=== PATIENT | female | born 1985 | race Caucasian/White ===

== ENCOUNTER 2018-08-31 10:06 | Inpatient (IN) | payer OTHER ==
[2018-08-31 11:04] LABS: Urine Benzodiazepine Screen None Detected (None Detect); Urine Opiates Screen None Detected (None Detect)
[2018-08-31] MEDS ORDERED: Lactated Ringers 1000 ML Bag* 1,000 ML IV ONE (12:41)
[2018-08-31] MEDS ORDERED: Buffered Lidocaine 1% SYRIN* 1 ML/SYRINGE INTRADERM ONE (12:41)
[2018-08-31 12:57] LABS: ABS Eosinophils 0.1 10^3/ul (0-0.6); ABS Lymphocytes 1.5 10^3/ul (1.0-4.8); ABS Monocytes 0.5 10^3/ul (0-0.8); Eosinophil % 0.7 %; Hematocrit 43 % (35-47); Hemoglobin 14.7 g/dL (12.0-16.0); Lymphocyte % 16.6 %; Mean Corpuscular HGB Conc 35 g/dL (31-36); Mean Corpuscular Hemoglobin 33 pg (27-31); Mean Corpuscular Volume 94 fL (80-97); Nucleated Red Blood Cells % 0.1; Platelet Count 174 10^3/uL (150-450); Red Blood Count 4.51 10^6 /uL (3.70-4.87); Red Cell Distribution Width 13 % (10-15); White Blood Count 9.2 10^3/uL (3.5-10.8)
[2018-08-31] MEDS ORDERED: Lactated Ringers 1000 ML Bag* 1,000 ML IV SCH (13:00)
--- NOTE | 2018-08-31 16:36 | HP ---
General Information - Reason for Visit at 39+ weeks EGA presents with Prior section and premature ruptured membranes, desires trial of labor. - General Information Maternal Age: 33 Grav: 4 Para: 1 SAB: 2 IEA: 0 Estimated Due Date: 09/05/18 Determined By: LMP Gestational Age in Weeks/Days: 39 2/7 Maternal Blood Type and Rh: A Positive - Results this Serology/RPR Result: Non-Reactive Rubella Result: Immune HBsAg Result: Negative HIV Result: Negative GBS Culture Result: Negative Past Medical History Delivery History: Hx C/Section, See Records Pertinent Past Medical History: See Records Past Medical History Comment: Eczema Food-Nut allergies, reaction anaphylaxis Pertinent Past Surgical History: See Records - Prior for breech 2018 Pertinent Family History: See Records - Antepartal Records Antepartal Records: Reviewed, Complicated by: - Prior Review of Systems Constitutional: Comfortable CV Complaint: No Respiratory: Shortness of Breath: No Gastrointestinal: No Nausea/Vomiting, Normal Bowel Movement, Nausea, Vomiting Genitourinary: Leaking Fluid, No Dysuria, No Bleeding Musculoskeletal: No Complaint, No Epigastric Pain Neurological: No Headache, No Visual Changes Movement: Normal Exam Allergies/Adverse Reactions: Allergies Tree Nuts Allergy (Severe, Verified 08/31/18 11:25) Anaphylatic Shock Vital Signs 08/31/18 08/31/18 12:22 16:12 Temperature 99 F 98.9 F Pulse Rate 76 76 Respiratory 18 16 Rate Blood Pressure 124/78 114/73 (mmHg) O2 Sat by Pulse 97 100 Oximetry Lab Values - Entire Visit: Laboratory Tests 08/31/18 08/31/18 08/31/18 10:33 10:33 12:48 WBC 9.2 RBC 4.51 Hgb 14.7 Hct 43 MCV 94 MCH 33 H MCHC 35 RDW 13 Plt Count 174 MPV 9.0 Neut % (Auto) 76.6 Lymph % (Auto) 16.6 Moody % (Auto) 5.8 Eos % (Auto) 0.7 Baso % (Auto) 0.3 Absolute Neuts (auto) 7.0 Absolute Lymphs (auto) 1.5 Absolute Monos (auto) 0.5 Absolute Eos (auto) 0.1 Absolute Basos (auto) 0.0 Absolute Nucleated RBC 0.0 Nucleated RBC % 0.1 Vag Amniotic Fld Detect Positive Urine Opiates Screen None detected Ur Barbiturates Screen None detected Ur Phencyclidine Scrn None detected Ur Amphetamines Screen None detected U Benzodiazepines Scrn None detected Urine Cocaine Screen None detected U Cannabinoids Screen None detected Blood Type Antibody Screen 08/31/18 12:48 WBC RBC Hgb Hct MCV MCH MCHC RDW Plt Count MPV Neut % (Auto) Lymph % (Auto) Moody % (Auto) Eos % (Auto) Baso % (Auto) Absolute Neuts (auto) Absolute Lymphs (auto) Absolute Monos (auto) Absolute Eos (auto) Absolute Basos (auto) Absolute Nucleated RBC Nucleated RBC % Vag Amniotic Fld Detect Urine Opiates Screen Ur Barbiturates Screen Ur Phencyclidine Scrn Ur Amphetamines Screen U Benzodiazepines Scrn Urine Cocaine Screen U Cannabinoids Screen Blood Type A Positive Antibody Screen Negative - Measurements Height: 5 ft 8 in Weight: 150 lb Weight in lbs: 150.540621 Body Mass Index (BMI): 22.8 Pre- Weight: 120 lb Weight Gained This : 30 lbs and 0 ozs - Exam Breast: Breast Exam Deferred CVA: No CVA Tenderness Extremities: No Edema Heart: Normal Rhythm/Heart Sounds HEENT: No Significant Findings Lungs: Clear Bilaterally Rectal: Rectal Exam Deferred Reflexes: DTR 2+ Thyroid: No Thyromegaly - Abdominal Exam Abdomen Exam: Non-Tender, Fundal Height Consistent with Dates - Ultrasound/Biophysical Profile Ultrasound Status: Not Done Targeted Exam Findings See L&D Outpatient Visit Provider Note for Findings: N/A Estimated Weight: 3500gms Presenting Part: Vertex Membrane Status: SROM Amniotic Fluid Evaluation: Positive ROM Plus, Clear Bleeding/Discharge: None EFM Findings - External Monitor Findings Baseline Heart Rate: 140 External Monitor Findings: Accelerations Present Contractions: None Assessment/Plan - Assessment Spontaneous premature ruptured membranes, reactive NST, desires TOLAC not in labor. - Plan Plan: Observe, Admit - Anticipate Vaginal Delivery - Date/Time of Admission Date of Admission: 08/31/18 Time of Admission: 13:00
[2018-09-01] MEDS ORDERED: Oxytocin in LR* 20 UNITS/1,000 ML BAG IVPB ONE (06:34)
[2018-09-01] MEDS ORDERED: Witch Hazel PAD* JAR TOPICAL PRN (06:52)
[2018-09-01] MEDS ORDERED: Glycerin ADULT SUPP PR PRN (06:52)
[2018-09-01] MEDS ORDERED: Dibucaine 1% 28.35 GM TUBE PR PRN (06:52)
[2018-09-01] MEDS ORDERED: Acetaminophen TAB* 325 MG PO PRN (06:52)
--- NOTE | 2018-09-01 06:58 | PROCNOTE ---
[facility] OB: Delivery Note - Delivery A Date of : 09/01/18 Time of : 06:28 Sex: Male Weight at : 6 lb 6 oz Score 1 Minute: 8 Score 5 Minutes: 9 Gestational Age in Weeks and Days at Delivery: 39 Weeks and 3 Days Delivery Method: Spontaneous Vaginal Labor: Spontaneous Did Patient attempt ?: Yes, Successful Amniotic Fluid: Clear Estimated Blood Loss: 300 Anesthesia/Analgesia: None Delivered By: Ketan Mcgovern - Nursery Level of Nursery: Regular/Bedside - Perineum Perineal Injury: 1st Degree - perineal not bleeding Perineal Repair: None - Events Delivery Events of Note: Pitocin Only After Delivery -
[2018-09-01] MEDS ORDERED: Lactated Ringers 1000 ML Bag* 1,000 ML IV SCH (07:00)
[2018-09-01] MEDS ORDERED: Ammonia Inhalant* 1 EA AMP ONE (08:10)
[2018-09-01] MEDS ORDERED: Simethicone TAB* 80 MG TAB.CHEW PO SCH (08:30)
[2018-09-01] MEDS: Ibuprofen TAB* 600 MG PO PRN ×3 (08:50→21:40)
[2018-09-01] MEDS: Docusate CAP* 100 MG PO SCH ×3 (15:40→21:39)
[2018-09-02 06:04] LABS: ABS Eosinophils 0.1 10^3/ul (0-0.6); ABS Lymphocytes 2.5 10^3/ul (1.0-4.8); ABS Monocytes 0.9 10^3/ul (0-0.8); ABS Neutrophils 13.6 10^3/ul (1.5-7.7); Eosinophil % 0.8 %; Hematocrit 33 % (35-47); Hemoglobin 11.5 g/dL (12.0-16.0); Lymphocyte % 14.7 %; Mean Corpuscular HGB Conc 35 g/dL (31-36); Mean Corpuscular Hemoglobin 33 pg (27-31); Mean Corpuscular Volume 95 fL (80-97); Mean Platelet Volume 8.6 fL (7.4-10.4); Platelet Count 149 10^3/uL (150-450); Red Blood Count 3.49 10^6 /uL (3.70-4.87); Red Cell Distribution Width 13 % (10-15); White Blood Count 17.2 10^3/uL (3.5-10.8)
[2018-09-02] MEDS: Docusate CAP* 100 MG PO SCH ×3 (08:03→20:33)
[2018-09-02] MEDS: Ibuprofen TAB* 600 MG PO PRN ×3 (08:03→20:33)
[2018-09-02] MEDS ORDERED: Ferrous Gluconate TAB* 324 MG TAB PO SCH (09:00)
[2018-09-03] MEDS: Ibuprofen TAB* 600 MG PO PRN ×2 (04:03→09:54)
[2018-09-03 08:50] VITALS: BP 122/72
[2018-09-03] MEDS: Docusate CAP* 100 MG PO SCH (09:54)
== END 2018-09-03 13:41 | disposition home or self-care (01) | DRG 807 ==
LOC: MCHOBOUT 10:06 → MCHOB 11:18
PROVIDERS: ADMIT Obstetrics & Gynecology; ATTEND Obstetrics & Gynecology
PROC: 10E0XZZ Delivery of Products of Conception, External Approach (ICD-10-PCS; principal; 2018-09-01)
PROC: 4A1HXCZ Monitoring of Products of Conception, Cardiac Rate, External Approach (ICD-10-PCS; 2018-09-01)
DX: O42.12 Full-term premature rupture of membranes, onset of labor more than 24 hours following rupture (principal); Z37.0 Single live birth; O34.211 Maternal care for low transverse scar from previous cesarean delivery; Z3A.39 39 weeks gestation of pregnancy; O70.0 First degree perineal laceration during delivery; Z91.018 Allergy to other foods
CPT/HCPCS: 36415; 80307; 84112; 85025; 86850; 86900; 86901; A9270-GY